=== PATIENT | male | born 1955 | race Caucasian/White ===

== ENCOUNTER → 2019-02-26 | Day surgery (SDC) | payer BC ==
--- NOTE | 2019-02-22 16:03 | Diagnostic Imaging Report ---
Chest, 2 views, 02/22/2019. History: Preop, foot surgery. Comparison: 10/31/2014. Findings: The cardiomediastinal silhouette and pulmonary vasculature are within normal limits. There is no focal consolidation or pleural effusion. Right basilar scarring is again noted. There are no acute osseous or soft tissue abnormalities. Impression: No acute cardiopulmonary abnormality. Signed by: Surjit Gabriel on 02/22/2019 4:00 PM
[~2019-02-26] MED LIST: ACETAMINOPHEN/CODEINE 300MG - 30MG TAB ONE; AMLODIPINE BESYL5 MG PO; ATORVASTATIN CA20 MG PO; BUPIVACAINE HCL 0.5% INJ 30 ML VIAL INJ ONE; BUPROPION HCL100 MG PO; CEFAZOLIN SOD 1 GM/NS 50ML 50 ML IV ONE; DEXAMETHASONE SOD PHOS INJ 4 MG/ML VIAL ONE; FENTANYL CITRATE/PF 100MCG/2 ML INJ ONE; GABAPENTIN100 MG PO; LIDOCAINE HCL 2% LOCAL INJ 5 ML SDV VIAL INJ ONE; MIDAZOLAM HCL 2 MG/2 ML VIAL ONE; PROPOFOL IV EMULSION 10 MG/ML 20 ML VIAL ONE; SEVOFLURANE INHAL SOLN 250 ML PEN BTL ONE
--- OUTSIDE RECORDS SUMMARY | 2019-02-26 05:21 | XMS REPORT ---
Author Author [facility] Address Unknown Phone Unavailable Care Team Providers Care Commercial Attache Name Role Phone Logan JOHNSON Unavailable Unavailable Problems This patient has no known problems. Allergies, Adverse Reactions, Alerts This patient has no known allergies or adverse reactions. Medications This patient has no known medications. Results Test Description Test Time Test Comments Text Results Atomic Results Result Comments CHEST 2 VIEWS 2019-02-22 15:58:00 [place] [address] Patient Name: JANINA HOPKINS MR #: [id number] : 1955 Age/Sex: 63/M Req #: [id number] Adm Physician: Ordered by: Logan JOHNSON DPM Report #: [id number] Location: OR Room/Bed: Procedure: [id number] DX/CHEST 2 VIEWS Exam Date: 02/22/19 Exam Time: 1532 REPORT STATUS: Signed Chest, 2 views, 02/22/2019. History: Preop, foot surgery. Comparison: 10/31/2014. Findings: The cardiomediastinal silhouette and pulmonary vasculature are within normal limits. There is no focal consolidation or pleural effusion. Right basilar scarring is again noted. There are no acute osseous or soft tissue abnormalities. Impression: No acute cardiopulmonary abnormality. Signed by: Mukund Gabriel on 02/22/2019 4:00 PM Dictated By: MUKUND GABRIEL MD 99 Transcribed By: IRASEMA on 02/22/191599 COPY TO: Logan JOHNSON DPM
[2019-02-26 08:39] VITALS: BP 110/76
--- NOTE | 2019-02-26 14:08 | Operative Report ---
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 OPERATIVE PROCEDURE: Excision of neuroma second interspace right and excision of neuroma third interspace right. DESCRIPTION OF PROCEDURE: The patient was placed on the OR table in the supine position. The right lower extremity was prepped and draped in the usual manner. A general anesthetic was administered and hemostasis accomplished using a pneumatic cuff set at 350 mmHg at thigh level Procedure #1: Excision of neuroma second interspace. An incision approximately 2 cm in length was made in the interspace between the second and third metatarsal head. The incision was deepened. Blood vessels were either ligated or retracted. The ligament between the second and third metatarsal was released. This exposed the hypertrophied nerve. Both distal branches were located and resected. The neuroma was removed in total from the second interspace. The wound was flushed with sterile saline solution. Subcutaneous tissue was closed with 3-0 Vicryl and skin with 4-0 nylon. Procedure #2: Excision of neuroma third interspace of the right foot. An incision approximately 2 cm in length was made in the interspace between the second and third metatarsal head. The incision was deepened. Blood vessels were either ligated or retracted. The ligament between the second and third metatarsal was released. This exposed the hypertrophied nerve. Both distal branches were located and resected. The neuroma was removed in total from the second interspace. The wound was flushed with sterile saline solution. Subcutaneous tissue was closed with 3-0 Vicryl and skin with 4-0 nylon. Following the procedure, 8 mL of 0.5 Marcaine and 1 mL of Decadron were injected. A sterile compression dressing was applied. At this time, the pneumatic cuff was released and a reflex hyperemia was observed to all digits. The patient tolerated the procedure and the anesthesia well and left the OR to recovery in good condition with vital signs stable. Yaima Caro DPM ([place]) /MODL /[id number] TACOS
== END | disposition home or self-care (01) ==
LOC: OR 05:19
PROVIDERS: ATTEND Podiatrist Foot & Ankle Surgery
DX: G57.61 Lesion of plantar nerve, right lower limb (principal); I10 Essential (primary) hypertension; E78.5 Hyperlipidemia, unspecified; R05 Cough; Z01.810 Encounter for preprocedural cardiovascular examination; Z01.818 Encounter for other preprocedural examination
CPT/HCPCS: 28080 ×2; 71046; 93005; J0690; J1100; J2001; J2250; J2704; J3010

== ENCOUNTER → 2019-07-04 | Outpatient (CLI) | payer BC ==
[~2019-07-04] MED LIST changes: -ACETAMINOPHEN/CODEINE 300MG - 30MG TAB ONE; -BUPIVACAINE HCL 0.5% INJ 30 ML VIAL INJ ONE; -CEFAZOLIN SOD 1 GM/NS 50ML 50 ML IV ONE; -DEXAMETHASONE SOD PHOS INJ 4 MG/ML VIAL ONE; -FENTANYL CITRATE/PF 100MCG/2 ML INJ ONE; -LIDOCAINE HCL 2% LOCAL INJ 5 ML SDV VIAL INJ ONE; -MIDAZOLAM HCL 2 MG/2 ML VIAL ONE; -PROPOFOL IV EMULSION 10 MG/ML 20 ML VIAL ONE; -SEVOFLURANE INHAL SOLN 250 ML PEN BTL ONE
--- NOTE | 2019-07-04 10:36 | Diagnostic Imaging Report ---
CT of the chest, without contrast. History: Pulmonary nodule. Comparison: Report of CT chest without contrast from 02/08/2013 (images not available for comparison). Technique: Multidetector CT scanning of the chest was performed from the level of the apices to the upper abdomen without contrast. Coronal and sagittal multiplanar reformations were obtained. RADIATION DOSE: Total DLP: 503.51 mGy*cm Dose modulation, iterative reconstruction, and/or weight based adjustment of the mA/kV was utilized to reduce the radiation dose to as low as reasonably achievable. FINDINGS: The thyroid and remaining visual structures within the base of the neck demonstrate no significant abnormalities. The thoracic aorta is normal course and caliber with atherosclerotic calcifications within its course and branch vessels including the coronary arteries. The heart is not enlarged. No abnormal pericardial fluid is present. Normal-sized mediastinal lymph nodes are noted. Calcified mediastinal lymph nodes also noted suggestive of prior granulomatous disease. There is no abnormal axillary, mediastinal, or hilar lymph node enlargement. The trachea and proximal airways are patent. There predominantly paraseptal emphysematous changes present bilaterally. There is a 1.0 x 0.7 cm pulmonary nodule abutting the right minor fissure (axial image 66). There is a 6 mm nodule along the right major fissure (axial image 65), previously reported at 6 mm. There is a 1.1 x 0.6 cm nodule along the left major fissure (axial image 56), previously reported at 1.0 x 0.6 cm. A calcified granuloma is noted within the left lung base. There is no evidence for consolidation, pneumothorax, or pleural effusion. Limited views of the upper abdomen demonstrate no significant abnormalities. The osseous structures demonstrate degenerative changes without evidence for acute fracture or destructive process. The extrathoracic soft tissues are unremarkable. IMPRESSION: 1. Prominent paraseptal emphysematous changes. 2. Noncalcified pulmonary nodules identified along the bilateral fissures. The largest is located along the left fissure and is unchanged in size from the prior examination from 02/08/2013. A nodule along the right minor fissure may be slightly increased in size. Appearance and location are suggestive of intrafissural lymph nodes. However given presence of emphysematous changes, consider CT examination in 3-6 months and then 18-24 months to assess stability. Signed by: Dr. Bautista Barragan MD on 07/04/2019 10:33 AM
== END ==
LOC: CT 08:37
PROVIDERS: ATTEND Family Medicine
DX: R91.1 Solitary pulmonary nodule (principal)
CPT/HCPCS: 71250

== ENCOUNTER → 2020-11-06 | Day surgery (SDC) | payer BC ==
[2020-11-04 10:53] LABS: BASOPHILS # (AUTO) 0.1 (0.0-0.1); BASOPHILS % 1.3 % (0.0-1.0); EOSINOPHILS # (AUTO) 0.7 (0.0-0.4); HEMATOCRIT 40.1 % (38.2-49.6); LYMPHOCYTES # (AUTO) 2.2 (1.0-3.2); LYMPHOCYTES % 27.6 % (18.0-39.1); MEAN CORPUSCULAR HGB CONC 32.4 g/dL (31-35); MEAN CORPUSCULAR VOLUME 95.7 fL (81-99); MONOCYTES # (AUTO) 0.8 (0.2-0.8); MONOCYTES % 9.7 % (4.4-11.3); NEUTROPHILS # (AUTO) 4.1 (2.1-6.9); NEUTROPHILS % 52.1 % (38.7-80.0); PLATELET COUNT 293 x10e3/uL (140-360); RED BLOOD COUNT 4.19 x10e6/uL (4.3-5.7)
[~2020-11-06] MED LIST changes: +BUPIVACAINE HCL 0.5% INJ 30 ML VIAL INJ ONE; +CEFAZOLIN SOD 1 GM/NS 50ML 50 ML IV ONE; +DEXAMETHASONE SOD PHOS INJ 4 MG/ML VIAL ONE; +DYMISTA NASAL S23 GM INH; +GLUCOSAMINE1000 MG PO; +TURMERIC 500 M1 EACH PO; +VIT B12 PO
[2020-11-06 07:55] VITALS: BP 131/78
== END | disposition home or self-care (01) ==
LOC: OR 05:24
PROVIDERS: ATTEND Podiatrist Foot & Ankle Surgery
DX: G57.62 Lesion of plantar nerve, left lower limb (principal); I10 Essential (primary) hypertension; E78.5 Hyperlipidemia, unspecified; Z01.810 Encounter for preprocedural cardiovascular examination; Z01.812 Encounter for preprocedural laboratory examination; Z01.818 Encounter for other preprocedural examination; Z20.822 Contact with and (suspected) exposure to COVID-19
CPT/HCPCS: 28080 ×2; 36415; 71046; 85025; 93005; J0690; J1100; U0002